=== PATIENT | female | born 1985 | race African-American/Black ===

== ENCOUNTER 2021-09-28 19:06 | Emergency (ER) | payer MEDICAID, OTHER ==
[~2021-09-28] VITALS: Ht 165.1 cm; Wt 67.1 kg
[~2021-09-28 19:06] MED LIST: NAPR-681 MT
[2021-09-28 22:11] LABS: BASOPHILS % 0.3 % (0.0-2.0); HEMATOCRIT. 31.3 % (36.0-48.0); HEMOGLOBIN. 10.1 g/dL (12.0-16.0); LYMPHOCYTES % 17.6 % (20.0-50.0); MEAN CORPUSCULAR HEMOGLOBIN 26.9 pg (28.0-32.0); MEAN CORPUSCULAR VOLUME 83.1 fL (81.0-99.0); MEAN PLATELET VOLUME 6.5 fl (7.4-10.4); MONOCYTES % 8.4 % (2.0-8.0); NEUTROPHILS % 72.7 % (40.0-76.0); PLATELET 478 x1000/uL (130-400); RED BLOOD CELL COUNT 3.77 mill/uL (4.2-5.4); RED CELL DISTRIBUTION WIDTH 15.5 % (11.6-14.6)
[2021-09-28 22:19] LABS: CHLORIDE 107 mEq/L (98-107)
[2021-09-28 22:23] LABS: HCG SCREEN NEGATIVE
[2021-09-28 22:26] LABS: ETHANOL BLOOD < 10 mg/dL; INR 1.1; PARTIAL THROMBOPLASTIN TIME 31.6 sec (23.4-31.0); PROTHROMBIN TIME 11.4 sec (9.6-11.0)
[2021-09-29] MEDS ORDERED: NA PHOS,M-B/NA PHOS,DI-BA ENEMA 118ML PR ONE (01:00)
[2021-09-29] MEDS ORDERED: MAGN296S31 MT (01:33)
[2021-09-29 02:14] VITALS: BP 142/87
== END 2021-09-29 02:16 | disposition home or self-care (01) ==
LOC: ER 19:06
DX: K56.41 Fecal impaction (principal); Z86.59 Personal history of other mental and behavioral disorders
CPT/HCPCS: 36415; 74018; 80053; 80307; 80320; 80329; 84703; 85025; 99284; G0480